=== PATIENT | male | born 1980 | race Caucasian/White ===

== ENCOUNTER 2019-02-26 08:28 | Outpatient (CLI) | payer OTHER ==
[2019-02-26] MEDS ORDERED: BARIUM SULFATE 135 ML SUSP.RECON (E-Z-HD) PO ONE ×2 (08:49→09:03)
[2019-02-26] MEDS ORDERED: AMMONIA INHALANT 0.3mL AMPUL INH ONE (08:49)
== END 2019-02-26 20:10 | disposition home or self-care (01) ==
LOC: SRD 08:28
PROVIDERS: ATTEND Otolaryngology Plastic Surgery within the Head & Neck
DX: R13.10 Dysphagia, unspecified (principal)
CPT/HCPCS: 74220-TC